=== PATIENT | male | born 1945 | race Caucasian/White ===

== ENCOUNTER → 2024-01-19 06:32 | Outpatient (REF) | payer OTHER, SELFPAY | LOC: MRI 06:32 | PROVIDERS: ATTENDING PHYSICIAN Orthopaedic Surgery; FAMILY PHYSICIAN Family Medicine | DX: M54.16 Radiculopathy, lumbar region (principal) | CPT/HCPCS: 72148 ==

== ENCOUNTER 2024-04-22 19:26 | Emergency (ER) | payer OTHER, SELFPAY ==
[2024-04-22 19:27] VITALS: BP 155/80
--- NOTE | 2024-04-22 20:38 | ED.GENMED ---
History of Present Illness
General
Chief Complaint: DVT/Possible Blood Clot
Source: patient
Time Seen by Provider: 04/22/24 20:29
History of Present Illness
History of Present Illness:
79yoM with a history of hyperlipidemia presenting with his for evaluation of right leg swelling. Patient has baseline neuropathy and sciatica issues. He has been experiencing swelling in his right foot and ankle for several months. He had a [address] home today from [place] this morning. When he returned him, he started to notice swelling in his lower leg as well which is new for him. He denies any shortness of breath or chest pain. No prior history of VTE.
Past History
Past History
ED Past Medical History: Hypercholesterolemia
ED Past Surgical History: Cholecystectomy
Social History
Tobacco: Non-smoker
Alcohol: Occasional
Drug: None
Personal:
Living: with family
Phy Exam
General Physical Exam
General Presentation: well appearing and no apparent distress
General age: appears stated age
General Skin: warm and dry
General Habitus: normal
General Mental: alert
Pulmonary Exam
Pulmonary Exam: no respiratory distress
Musculoskeletal Exam
Musculoskeletal Exam: other (Mild swelling to R calf. 1+ pitting edema to R ankle/foot. Several old scabs noted to R anterior lower leg without signs of infection. 2+ DP pulse and sensation intact. )
Skin Exam
Skin Exam: warm/dry
Psychiatric Exam
Psychiatric Exam: normal mood/affect
Course
Orders/Labs/Results
Orders:
Orders
04/22/24 20:36
Venous Doppler Lwr Ext Rt [US Periph Venous LOWER Ext RT] Urgent
Comment:
Reason For Exam: R calf swelling
Vital Signs
Initial and Last Documented VS:
Initial Vital Signs
Temp Pulse Resp BP Pulse Ox
97.8 F 74 18 155/80 99
04/22/24 19:27 04/22/24 19:27 04/22/24 19:27 04/22/24 19:27 04/22/24 19:27
Last Documented Vital Signs
Temp Pulse Resp BP Pulse Ox
97.8 F 74 18 155/80 99
04/22/24 19:27 04/22/24 19:27 04/22/24 19:27 04/22/24 19:27 04/22/24 21:26
MDM/Problems Addressed
Differential Diagnosis Includes:
79yoM here with R lower leg swelling. Has been having R foot/ankle swelling x several weeks-months. New R lower leg swelling today. He had a 10 [address] from [place] today. No CP/SOB. He is well appearing in no distress. He is afebrile and
hemodynamically stable. He has mild edema to the R leg on exam. RLE is neurovascularly intact. Differential diagnosis includes but is not limited to: DVT, Daily's cyst, dependent edema
Venous duplex obtained which is negative for DVT. He is stable for discharge. Advised elevation and compression socks to help with swelling. Advised f/u with PCP. ED return precautions discussed. He was discharged in stable condition.
*Critical Care Note
Total Time (30-74mins, 75-104mins- exclusive of procedures): Not Applicable
ED Attending Note
-
Portions of this chart may have been created with voice recognition software.� Occasional wrong word or��sound alike� substitutions may have occurred due to the inherent limitations of voice recognition software.
Discharge Plan
Departure
Patient Disposition: Home (Routine Discharge)
Date of Disposition: 04/22/24
Time of Disposition: 22:12
Patient with high blood pressure during this ER visit?: Yes
Discharge Problem:
Localized swelling of right lower leg
Instructions: Swelling
Prescriptions:
No Action
pravastatin 20 MG tablet
20 mg PO DAILY
omeprazole 20 MG tablet,delayed release (DR/EC)
20 mg PO DAILY
Magnesium Complex
2 tab PO HS
Patient Comments:
Zince 7.5 mg, Vit D3 25 mcg, 225 mg Mag
Res-Q Natural Male
2 cap PO DAILY
doxycycline hyclate 20 MG tablet
40 mg PO BID
mupirocin 1 APPLIC ointment
1 applic intranasal BID Qty: 1 0RF
Patient Comments:
pt states he started early 01/08/21 as ordered did his own dose this am
sennosides [senna] 1 TABLET tablet
2 tab PO BID 0RF
lidocaine [Aspercreme (lidocaine)] 1 PATCH adhesive patch,medicated
2 patch topical DAILY PRN (Reason: thigh pain ) Qty: 14 0RF
Rx Instructions:
Over the counter. Remove nightly.
Apply to bilateral thighs. Do not place over incisions.
aspirin 325 MG tablet
325 mg PO DAILY Qty: 28 0RF
Rx Instructions:
Take daily x4 weeks for blood clot prevention.
docusate sodium 100 MG capsule
100 mg PO BID 0RF
gabapentin 100 MG capsule
200 mg PO TID Qty: 45 0RF
oxycodone 5 MG tablet
5 mg PO Q4HPRN PRN (Reason: moderate-severe pain) Qty: 30 0RF
Rx Instructions:
1 tab moderate pain or 2 if pain severe
Dx total joint replacement
ongoing therapy
acetaminophen 500 MG tablet
1,000 mg PO Q6H Qty: 60 0RF
Rx Instructions:
Do not exceed >4000 mg daily.
cyclobenzaprine 5 MG tablet
5 mg PO TIDPRN PRN (Reason: muscle spasms) Qty: 12 0RF
Referrals:
Stuart Geronimo MD [Family Provider] -
Activity Restrictions/Additional Instructions:
Elevate your leg and wear compression socks to help with swelling.
Please follow-up with your family doctor.
Interventions
Interventions:
*Risk Screen - Suicide Last Done: 04/22/24 19:27
*General Assessment Last Done: 04/22/24 19:27
*Neglect/Abuse Screening Last Done: 04/22/24 19:27
ED- Fall Risk Assessment Last Done: 04/22/24 22:20
*ED COVID-19 Vaccine History Last Done: 04/22/24 19:27
*Nursing Disposition Last Done: 04/22/24 22:20
ED- Cardiac Assessment Last Done: 04/22/24 21:26
ED- Pulmonary Assessment Last Done: 04/22/24 21:26
ED-Peripheral Vascular Assessment Last Done: 04/22/24 21:26
ED-Skin Assessment Last Done: 04/22/24 21:26
Discharge Date and Time
Discharge Date/Time: 04/22/24 22:21
Print Language: BANGLADESHI
== END 2024-04-22 22:21 | disposition home or self-care (01) ==
LOC: EMR 19:26
PROVIDERS: EMERGENCY PHYSICIAN Student in an Organized Health Care Education/Training Program; FAMILY PHYSICIAN Family Medicine
DX: R22.41 Localized swelling, mass and lump, right lower limb (principal); E78.00 Pure hypercholesterolemia, unspecified; G62.9 Polyneuropathy, unspecified; Z90.49 Acquired absence of other specified parts of digestive tract
CPT/HCPCS: 99284; 93971

== ENCOUNTER → 2025-06-28 11:05 | Outpatient (REF) | payer OTHER, SELFPAY | LOC: PET 11:05 | PROVIDERS: ATTENDING PHYSICIAN Specialist | DX: C61 Malignant neoplasm of prostate (principal) | CPT/HCPCS: 78815 ==

== ENCOUNTER 2025-08-08 07:01 | Day surgery (SDC) | payer OTHER, SELFPAY ==
[2025-07-31 10:59] LABS: Hematocrit 42.0 % (39.0-52.0); Hemoglobin 13.9 g/dL (13.0-18.0); Mean Corp Hgb Conc. 33.1 g/dL (33.0-37.0); Mean Corpuscular Volume 95.5 fL (80.0-94.0); Platelet Count 221 10^3/uL (130-400); Red Cell Dist. Width 13.3 % (11.5-14.5)
[2025-07-31 11:33] LABS: Blood Urea Nitrogen 25 mg/dl (9-20); Calcium 9.3 mg/dl (8.4-10.2); Carbon Dioxide 28 mmol/L (22-30); Chloride 104 mmol/L (98-107); Glucose 87 mg/dl (70-99); Potassium 5.1 mmol/L (3.5-5.1); Sodium 136 mmol/L (135-145); eGFR > 60.00
[2025-07-31 14:39] VITALS: BMI 31.8
[2025-08-08] VITALS (16 sets, daily range): BP systolic 108–138; BP diastolic 63–90; BMI 31.8
[2025-08-08] MEDS: NORMOSOL-R/PLASMALYTE-A 1000 IV ×2 (10:55→18:16)
[2025-08-08] MEDS: HEPARIN 5000 UNITS SC (10:56)
[2025-08-08] MEDS: LOVENOX 40 MG SC (18:15)
[2025-08-08] MEDS: COLACE 100 MG PO (18:15)
[2025-08-08] MEDS: POLYSPORIN OINTMENT 1 APPLIC TOPICAL (22:10)
[2025-08-08] MEDS: TORADOL 15 MG IV (22:11)
--- NOTE | 2025-08-09 00:45 | PTCARENOTE ---
Pt noted to have irregular apical pulse upon assessment. EKG performed, pt in afib. VSS. Pt asymptomatic. REVENUE AGENT notified via tiger text. Pt put on roller. Pt spontaneously converted back to NSR at 23:53. REVENUE AGENT and urology expansion envelope maker hand aware. Pt
resting comfortably in bed at this time. Care ongoing.
[2025-08-09] MEDS: NORMOSOL-R/PLASMALYTE-A 1000 IV (02:07)
[2025-08-09 03:00] VITALS: BP 95/56
[2025-08-09] MEDS: TORADOL 15 MG IV ×2 (05:31→09:10)
[2025-08-09 07:25] LABS: Hematocrit 36.8 % (39.0-52.0); Hemoglobin 12.5 g/dL (13.0-18.0); Mean Corp Hgb Conc. 34.0 g/dL (33.0-37.0); Mean Corpuscular Volume 94.4 fL (80.0-94.0); Platelet Count 215 10^3/uL (130-400); Red Cell Dist. Width 13.1 % (11.5-14.5)
[2025-08-09 07:45] VITALS: BP 119/64
[2025-08-09 08:00] LABS: Blood Urea Nitrogen 32 mg/dl (9-20); Calcium 8.6 mg/dl (8.4-10.2); Carbon Dioxide 28 mmol/L (22-30); Chloride 100 mmol/L (98-107); Estimated Creatinine Clearance 49 ml/min; Glucose 98 mg/dl (70-99); Potassium 4.6 mmol/L (3.5-5.1); Sodium 133 mmol/L (135-145); eGFR 50.49
--- NOTE | 2025-08-09 08:15 | W.PN.URO.CBU ---
Today's Communication / Plan
-
discharge
Assessment / Plan
-
stable
Diagnosis
-
Date of Service: August 09, 2025
-
Patient Diagnosis: Prostate Cancer s/p RALRP
Post Op Day: 1
Subjective
-
modest pelvic pain
Objective
-
Vital Signs
Temp Pulse Resp BP Pulse Ox
98.9 F 79 16 119/64 96
08/09/25 07:45 08/09/25 07:45 08/09/25 07:45 08/09/25 07:45 08/09/25 07:45
Intake and Output
08/08/25 08/09/25 08/10/25
06:59 06:59 06:59
Intake Total 1360 / 1360
Output Total 790 / 790
Balance 570 / 570
Intake:
Oral fluids 60 / 60
IV fluids (Total) 1300 / 1300
Normosol 300 / 300
Output:
Urine, Brooks 790 / 790
Laboratory Results
08/09/25 06:30
08/09/25 06:30
Physical Exam
-
General - well developed, well nourished, no acute distress
Abdomen - soft, no distention
Genitalia - Brooks draining karen urine
Skin - warm & dry with no rash
Neuro - AOx3, no motor deficits
Extremities - no clubbing, no cyanosis, no edema
Dressings - clean, dry, intact
--- NOTE | 2025-08-09 08:21 | CM ---
Chart reviewed and family preservation caseworker met with patient and spouse at bedside, patient has been cleared for discharge to home with visiting nurses. Patient states he lives with his spouse in a 2 story home, is independent with adl's and ambulation, no dme,
patient drives.
PCP: Dr. Geronimo
Pharmacy: [facility]
Plan; Home with visiting nurses, options reviewed and patient has selected [facility], surgical instructions provided to home care nurse.
--- NOTE | 2025-08-09 08:48 | VNURNOTE ---
Home Health Liaison met with patient and spouse at bedside to discuss [facility] nurse/therapy, visits, schedule and homebound status. Patient is agreeable and understands that visits at home will be 2-3 x per week to assess and teach medical
management. Patient is aware that [facility] will contact them for start of care within a few days after discharge from . Provided contact number for [facility].
[facility] referral completed in [facility] Port.
[2025-08-09] MEDS: POLYSPORIN OINTMENT 1 APPLIC TOPICAL (09:09)
[2025-08-09] MEDS: VIBRAMYCIN 40 MG PO (09:09)
[2025-08-09] MEDS: PRAVACHOL 40 MG PO (09:11)
[2025-08-09] MEDS: COLACE 100 MG PO (09:12)
[2025-08-09 10:51] VITALS: BP 142/73
== END 2025-08-09 11:18 | disposition home or self-care (01) ==
LOC: SDS 07:01
PROVIDERS: ATTENDING PHYSICIAN Specialist; FAMILY PHYSICIAN Family Medicine
DX: C61 Malignant neoplasm of prostate (principal)
CPT/HCPCS: 55866; 38571; 80048; 85027; 88305; 88307; 88309; 88331; 93005